=== PATIENT | female | born 1935 | race Caucasian/White ===

== ENCOUNTER 2018-02-16 19:02 | Observation (INO) | payer MEDICARE, BC ==
[~2018-02-16] VITALS: Ht 157.5 cm; Wt 77.3 kg
[2018-02-16 19:27] LABS: BASOPHILS % (AUTO) 0.7 % (0-1); EOSINOPHILS # (AUTO) 0.2 X10'3 (0-0.9); EOSINOPHILS % (AUTO) 3.3 % (0-6); HEMATOCRIT 41.4 % (35.0-45.0); HEMOGLOBIN 14.6 g/dl (12.0-16.0); LYMPHOCYTES # (AUTO) 1.2 X10'3 (1.1-4.8); LYMPHOCYTES % (AUTO) 17.9 % (21-51); MEAN CORPUSCULAR HEMOGLOBIN 33.5 PG (27.0-31.0); MEAN CORPUSCULAR HGB CONC 35.3 % (33.0-36.5); MEAN CORPUSCULAR VOLUME 94.8 FL (78-98); MEAN PLATELET VOLUME 7.7 FL (7.4-10.4); MONOCYTES # (AUTO) 0.6 X10'3 (0-0.9); MONOCYTES % (AUTO) 8.1 % (2-12); NEUTROPHILS # (AUTO) 4.8 X10'3 (1.8-7.7); PLATELET COUNT 190 X10'3 (140-440); RED BLOOD COUNT 4.37 X10'6 (4.20-5.60); RED CELL DISTRIBUTION WIDTH 13.2 % (11.5-14.5); WHITE BLOOD COUNT 6.9 X10'3 (4.5-11.0)
[2018-02-16 19:38] LABS: PARTIAL THROMBOPLASTIN TIME 26 SECONDS (22-32); PROTHROMBIN TIME 10.2 SECONDS (9.0-12.0)
[2018-02-16 19:40] LABS: ALANINE AMINOTRANSFERASE 64 U/L (12-78); ALBUMIN 3.3 G/DL (3.4-5.0); ALKALINE PHOSPHATASE 86 IU/L (46-116); ANION GAP 13 (8-16); ASPARTATE AMINO TRANSFERASE 39 U/L (10-37); BILIRUBIN,TOTAL 0.4 MG/DL (0.1-1.0); BLOOD UREA NITROGEN 15 MG/DL (7-18); BUN/CREATININE RATIO 21.7 (6.6-38.0); CALCIUM 8.4 MG/DL (8.5-10.1); CHLORIDE 107 MMOL/L (99-107); CREATININE 0.69 MG/DL (0.40-0.90); GLUCOSE 133 MG/DL (70-104); POTASSIUM 3.8 MMOL/L (3.5-5.1); SODIUM 144 MMOL/L (135-145); TOTAL CARBON DIOXIDE 24.3 MMOL/L (24-32); TOTAL PROTEIN 6.5 G/DL (6.4-8.2); eGFR 82 ML/MIN
[2018-02-16] MEDS ORDERED: CLOP75TA33 PO (21:15)
[2018-02-16] MEDS ORDERED: PRAV10TA39 PO (21:15)
[2018-02-16] MEDS ORDERED: ASPI-611 PO (21:15)
[2018-02-16] MEDS ORDERED: EZET10TA14 PO (21:15)
[2018-02-16] MEDS ORDERED: acetaminophen 325mg tablet PO PRN ×2 (21:50)
[2018-02-16] MEDS ORDERED: ondansetron/PF 4mg/2ml inj IV PRN (21:50)
[2018-02-16] MEDS ORDERED: mag hydrox/Alum hydrox/simeth 30ml oral suspension PO PRN (21:50)
[2018-02-16] MEDS ORDERED: HYDROcodone/acetaminophen 5mg/325mg tablet PO PRN (21:50)
[2018-02-16] MEDS ORDERED: magnesium hydroxide 30ml (MOM) UD suspension PO PRN (21:50)
[2018-02-17 00:35] VITALS: BP 136/73
[2018-02-17 05:37] LABS: BASOPHILS % (AUTO) 0.5 % (0-1); EOSINOPHILS # (AUTO) 0.2 X10'3 (0-0.9); EOSINOPHILS % (AUTO) 3.2 % (0-6); HEMOGLOBIN 14.5 g/dl (12.0-16.0); LYMPHOCYTES # (AUTO) 1.4 X10'3 (1.1-4.8); LYMPHOCYTES % (AUTO) 24.2 % (21-51); MEAN CORPUSCULAR HEMOGLOBIN 33.6 PG (27.0-31.0); MEAN CORPUSCULAR HGB CONC 35.3 % (33.0-36.5); MEAN CORPUSCULAR VOLUME 95.2 FL (78-98); MEAN PLATELET VOLUME 7.8 FL (7.4-10.4); MONOCYTES # (AUTO) 0.5 X10'3 (0-0.9); MONOCYTES % (AUTO) 8.6 % (2-12); NEUTROPHILS # (AUTO) 3.7 X10'3 (1.8-7.7); NEUTROPHILS % (AUTO) 63.5 % (42-75); PLATELET COUNT 177 X10'3 (140-440); RED CELL DISTRIBUTION WIDTH 13.3 % (11.5-14.5); WHITE BLOOD COUNT 5.8 X10'3 (4.5-11.0)
[2018-02-17 05:46] LABS: ALBUMIN 3.2 G/DL (3.4-5.0); ANION GAP 9 (8-16); BLOOD UREA NITROGEN 11 MG/DL (7-18); BUN/CREATININE RATIO 18.3 (6.6-38.0); CALCIUM 8.6 MG/DL (8.5-10.1); CHLORIDE 109 MMOL/L (99-107); GLUCOSE 97 MG/DL (70-104); POTASSIUM 3.7 MMOL/L (3.5-5.1); SODIUM 143 MMOL/L (135-145); TOTAL CARBON DIOXIDE 25.3 MMOL/L (24-32); eGFR > 90 ML/MIN
[2018-02-17 07:30] VITALS: BP 140/67
[2018-02-17] MEDS ORDERED: atorvastatin 10mg tablet PO SCH (08:00)
[2018-02-17] MEDS ORDERED: clopidogrel 75mg tablet PO SCH (08:00)
[2018-02-17] MEDS ORDERED: famotidine 20mg tablet PO SCH (08:00)
[2018-02-17] MEDS ORDERED: pravastatin 10mg tablet PO SCH (08:00)
[2018-02-17] MEDS ORDERED: non-formulary drug (Aspirin (Aspir 81) 1 TAB) PO SCH (08:00)
[2018-02-17] MEDS ORDERED: ezetimibe 10mg tablet PO SCH (08:00)
[2018-02-17] MEDS ORDERED: aspirin 81mg tablet.DR PO SCH (08:00)
[2018-02-17 11:41] VITALS: BP 138/68
[2018-02-17] MEDS ORDERED: PANT-47 PO (11:57)
[2018-02-17] MEDS ORDERED: DIPH25CA83 PO (11:57)
== END 2018-02-17 13:55 | disposition home or self-care (01) ==
LOC: ER 19:02 → ED HOLD 21:47 → CMPBEDREQ 02-17 00:26 → SUR 3N 02-17 00:30
PROVIDERS: ADMIT Family Medicine; ATTEND Internal Medicine
DX: R10.13 Epigastric pain (principal); I25.10 Atherosclerotic heart disease of native coronary artery without angina pectoris; E78.5 Hyperlipidemia, unspecified; K21.9 Gastro-esophageal reflux disease without esophagitis; Z82.3 Family history of stroke; Z82.49 Family history of ischemic heart disease and other diseases of the circulatory system; Z90.710 Acquired absence of both cervix and uterus; Z95.5 Presence of coronary angioplasty implant and graft
CPT/HCPCS: 36415; 71045; 80048; 80053; 84484; 85025; 85610; 85730; 87070; 99285; G0378

== ENCOUNTER 2018-02-20 08:50 | Emergency (ER) | payer MEDICARE, BC ==
[~2018-02-20] VITALS: Ht 157.5 cm; Wt 80.0 kg
[~2018-02-20 08:50] MED LIST: ASPI-611 PO; CLOP75TA33 PO; DIPH25CA83 PO; EZET10TA14 PO; PANT-47 PO; PRAV10TA39 PO
[2018-02-20] MEDS ORDERED: pantoprazole 40 MG vial IV ONE (09:10)
[2018-02-20 09:42] LABS: BASOPHILS % (AUTO) 0.4 % (0-1); EOSINOPHILS # (AUTO) 0.1 X10'3 (0-0.9); HEMATOCRIT 44.3 % (35.0-45.0); HEMOGLOBIN 15.5 g/dl (12.0-16.0); LYMPHOCYTES # (AUTO) 1.1 X10'3 (1.1-4.8); LYMPHOCYTES % (AUTO) 18.3 % (21-51); MEAN CORPUSCULAR HEMOGLOBIN 33.3 PG (27.0-31.0); MEAN CORPUSCULAR VOLUME 95.4 FL (78-98); MEAN PLATELET VOLUME 7.7 FL (7.4-10.4); MONOCYTES # (AUTO) 0.4 X10'3 (0-0.9); MONOCYTES % (AUTO) 6.8 % (2-12); NEUTROPHILS # (AUTO) 4.2 X10'3 (1.8-7.7); NEUTROPHILS % (AUTO) 72.5 % (42-75); PLATELET COUNT 205 X10'3 (140-440); RED BLOOD COUNT 4.64 X10'6 (4.20-5.60); RED CELL DISTRIBUTION WIDTH 12.8 % (11.5-14.5); WHITE BLOOD COUNT 5.8 X10'3 (4.5-11.0)
[2018-02-20 09:50] LABS: PROTHROMBIN TIME 10.2 SECONDS (9.0-12.0)
[2018-02-20 10:04] LABS: ALANINE AMINOTRANSFERASE 57 U/L (12-78); ALBUMIN 3.6 G/DL (3.4-5.0); ALKALINE PHOSPHATASE 83 IU/L (46-116); ANION GAP 12 (8-16); ASPARTATE AMINO TRANSFERASE 34 U/L (10-37); BILIRUBIN,TOTAL 0.6 MG/DL (0.1-1.0); BLOOD UREA NITROGEN 20 MG/DL (7-18); BUN/CREATININE RATIO 23.5 (6.6-38.0); CALCIUM 8.7 MG/DL (8.5-10.1); CHLORIDE 107 MMOL/L (99-107); CREATININE 0.85 MG/DL (0.40-0.90); GLUCOSE 133 MG/DL (70-104); MAGNESIUM 1.9 MG/DL (1.5-2.4); POTASSIUM 3.9 MMOL/L (3.5-5.1); SODIUM 144 MMOL/L (135-145); TOTAL CARBON DIOXIDE 24.8 MMOL/L (24-32); TOTAL PROTEIN 7.1 G/DL (6.4-8.2); eGFR 64 ML/MIN
[2018-02-20 10:35] LABS: OCCULT BLOOD STOOL NEGATIVE (Neg)
[2018-02-20 11:23] VITALS: BP 139/77
== END 2018-02-20 11:25 | disposition home or self-care (01) ==
LOC: ER 08:51
DX: R19.7 Diarrhea, unspecified (principal); K92.1 Melena; I25.2 Old myocardial infarction; I25.10 Atherosclerotic heart disease of native coronary artery without angina pectoris; Z95.5 Presence of coronary angioplasty implant and graft; Z79.02 Long term (current) use of antithrombotics/antiplatelets; Z79.82 Long term (current) use of aspirin; Z88.0 Allergy status to penicillin; Z88.8 Allergy status to other drugs, medicaments and biological substances; Z79.899 Other long term (current) drug therapy
CPT/HCPCS: 36415; 80053; 82272; 83735; 83880; 84484; 85025; 85610; 99284

== ENCOUNTER 2018-07-20 09:35 | Emergency (ER) | payer MEDICARE, BC ==
[~2018-07-20] VITALS: Ht 157.5 cm; Wt 30.9 kg
[2018-07-20] MEDS ORDERED: nitroGLYCERIN 0.4mg SUBLingual tab SL PRN (09:45)
[2018-07-20] MEDS ORDERED: aspirin 81mg tab.chew PO ONE (09:45)
[2018-07-20] MEDS ORDERED: cloNIDine 0.1 mg tablet PO ONE (09:50)
[2018-07-20 09:55] LABS: BASOPHILS % (AUTO) 0.3 % (0-1); EOSINOPHILS # (AUTO) 0.1 X10'3 (0-0.9); EOSINOPHILS % (AUTO) 1.5 % (0-6); HEMATOCRIT 47.8 % (35.0-45.0); HEMOGLOBIN 16.4 g/dl (12.0-16.0); LYMPHOCYTES # (AUTO) 0.8 X10'3 (1.1-4.8); LYMPHOCYTES % (AUTO) 9.7 % (21-51); MEAN CORPUSCULAR HEMOGLOBIN 33.1 PG (27.0-31.0); MEAN CORPUSCULAR HGB CONC 34.4 % (33.0-36.5); MEAN CORPUSCULAR VOLUME 96.2 FL (78-98); MEAN PLATELET VOLUME 7.8 FL (7.4-10.4); MONOCYTES # (AUTO) 0.3 X10'3 (0-0.9); NEUTROPHILS # (AUTO) 6.5 X10'3 (1.8-7.7); NEUTROPHILS % (AUTO) 84.5 % (42-75); PLATELET COUNT 229 X10'3 (140-440); RED BLOOD COUNT 4.97 X10'6 (4.20-5.60); RED CELL DISTRIBUTION WIDTH 13.6 % (11.5-14.5); WHITE BLOOD COUNT 7.7 X10'3 (4.5-11.0)
[2018-07-20] MEDS ORDERED: ondansetron/PF 4mg/2ml inj IV ONE (10:00)
[2018-07-20 10:03] LABS: PARTIAL THROMBOPLASTIN TIME 27 SECONDS (22-32); PROTHROMBIN TIME 10.1 SECONDS (9.0-12.0)
[2018-07-20 10:08] LABS: ALANINE AMINOTRANSFERASE 25 U/L (12-78); ALBUMIN/GLOBULIN RATIO 1.1 (1.1-1.5); ALKALINE PHOSPHATASE 105 IU/L (46-116); ANION GAP 9 (8-16); ASPARTATE AMINO TRANSFERASE 24 U/L (10-37); BILIRUBIN,TOTAL 0.7 MG/DL (0.1-1.0); BLOOD UREA NITROGEN 18 MG/DL (7-18); BUN/CREATININE RATIO 20.9 (6.6-38.0); CALCIUM 9.5 MG/DL (8.5-10.1); CHLORIDE 102 MMOL/L (99-107); CREATININE 0.86 MG/DL (0.40-0.90); GLUCOSE 121 MG/DL (70-104); POTASSIUM 4.1 MMOL/L (3.5-5.1); SODIUM 137 MMOL/L (135-145); TOTAL PROTEIN 7.8 G/DL (6.4-8.2); eGFR 63 ML/MIN
[2018-07-20] MEDS ORDERED: ONDA4TAB9 SL (12:17)
[2018-07-20 12:34] VITALS: BP 99/50
== END 2018-07-20 12:36 | disposition home or self-care (01) ==
LOC: ER 09:35
DX: R06.02 Shortness of breath (principal); R42 Dizziness and giddiness; R11.0 Nausea; I25.10 Atherosclerotic heart disease of native coronary artery without angina pectoris; I25.2 Old myocardial infarction; Z98.61 Coronary angioplasty status; Z88.0 Allergy status to penicillin; Z88.8 Allergy status to other drugs, medicaments and biological substances; Z79.82 Long term (current) use of aspirin
CPT/HCPCS: 36415; 71045; 80053; 83880; 84484; 85025; 85610; 85730; 93005; 99285; J2405

== ENCOUNTER 2019-07-22 10:35 | Emergency (ER) | payer MEDICARE, BC ==
[~2019-07-22] VITALS: Ht 157.5 cm; Wt 72.0 kg
[~2019-07-22 10:35] MED LIST changes: -EZET10TA14 PO; +EZET10TA21 PO
--- NOTE | 2019-07-22 11:46 | NUR ---
PT TO CT VIA W/C
[2019-07-22] MEDS ORDERED: ACET-2119 PO (12:30)
[2019-07-22] MEDS ORDERED: NAPR-56 PO (12:30)
[2019-07-22] MEDS ORDERED: ONDA4TAB6 PO (12:30)
[2019-07-22] MEDS ORDERED: naproxen 500mg tablet PO ONE (12:30)
[2019-07-22] MEDS ORDERED: acetaminophen 325mg tablet PO ONE (12:30)
[2019-07-22 12:33] VITALS: BP 155/83
== END 2019-07-22 12:37 | disposition home or self-care (01) ==
LOC: ER 10:35
DX: S06.0X0A Concussion without loss of consciousness, initial encounter (principal); I25.10 Atherosclerotic heart disease of native coronary artery without angina pectoris; I25.2 Old myocardial infarction; Z88.0 Allergy status to penicillin; Z88.8 Allergy status to other drugs, medicaments and biological substances; Z79.82 Long term (current) use of aspirin; Z79.899 Other long term (current) drug therapy; Z98.61 Coronary angioplasty status; X58.XXXA Exposure to other specified factors, initial encounter; Y93.89 Activity, other specified; Y92.89 Other specified places as the place of occurrence of the external cause; Y99.8 Other external cause status
CPT/HCPCS: 70450; 72125; 99284

== ENCOUNTER 2023-10-06 11:15 | Inpatient (IN) | payer MEDICARE, OTHER ==
[~2023-10-06] VITALS: Ht 157.5 cm; Wt 75.8 kg
[~2023-10-06 11:15] MED LIST changes: -EZET10TA21 PO; +EZET10TA6 PO; +ONDA4TAB6 PO
[2023-10-06 11:40] LABS: BASOPHILS % (AUTO) 0.6 % (0-1); EOSINOPHILS # (AUTO) 0.2 X10'3 (0-0.9); EOSINOPHILS % (AUTO) 2.3 % (0-6); HEMATOCRIT 45.1 % (35.0-45.0); HEMOGLOBIN 15.4 g/dl (12.0-16.0); LYMPHOCYTES # (AUTO) 1.7 X10'3 (1.1-4.8); LYMPHOCYTES % (AUTO) 25.4 % (21-51); MEAN CORPUSCULAR HEMOGLOBIN 33.3 PG (27.0-31.0); MEAN CORPUSCULAR HGB CONC 34.1 g/dL (33.0-36.5); MEAN CORPUSCULAR VOLUME 97.6 FL (78-98); MEAN PLATELET VOLUME 9.6 FL (7.4-10.4); MONOCYTES # (AUTO) 0.6 X10'3 (0-0.9); NEUTROPHILS # (AUTO) 4.2 X10'3 (1.8-7.7); NEUTROPHILS % (AUTO) 62.7 % (42-75); PLATELET COUNT 153 X10'3 (140-440); RED BLOOD COUNT 4.62 X10'6 (4.20-5.60); RED CELL DISTRIBUTION WIDTH 13.4 % (11.5-14.5); WHITE BLOOD COUNT 6.7 X10'3 (4.5-11.0)
[2023-10-06 11:54] LABS: ALANINE AMINOTRANSFERASE 25 U/L (12-78); ALBUMIN 3.3 G/DL (3.4-5.0); ALBUMIN/GLOBULIN RATIO 1.1 (1.1-1.5); ALKALINE PHOSPHATASE 106 IU/L (46-116); ANION GAP 8 (8-16); ASPARTATE AMINO TRANSFERASE 18 U/L (10-37); BILIRUBIN,TOTAL 0.3 MG/DL (0.1-1.0); BLOOD UREA NITROGEN 16 MG/DL (7-18); BUN/CREATININE RATIO 18.8 (10.0-20.0); CALCIUM 8.6 MG/DL (8.5-10.1); CHLORIDE 105 MMOL/L (99-107); CREATININE 0.85 MG/DL (0.40-0.90); POTASSIUM 3.4 MMOL/L (3.5-5.1); SODIUM 140 MMOL/L (135-145); TOTAL CARBON DIOXIDE 27.1 MMOL/L (24-32); TOTAL PROTEIN 6.3 G/DL (6.4-8.2); eCRCL 38 ML/MIN; eGFR 64 ML/MIN
[2023-10-06 12:02] LABS: PRO BRAIN NATRIURETIC PEPTIDE 702 PG/ML (0-450)
[2023-10-06 12:03] LABS: GLUCOSE 111 MG/DL (70-104)
[2023-10-06] MEDS ORDERED: amLODIPine 5mg tablet PO ONE (21:15)
[2023-10-06] MEDS ORDERED: potassium Cl 20 mEq SR tablet PO PRN ×2 (22:50)
[2023-10-06] MEDS ORDERED: PERFLUTREN PROTEIN-A MICROSPHR (Optison) 0.22 MG/ML 3ML VIAL IV ONE (22:50)
[2023-10-06] MEDS ORDERED: mag hydrox/Alum hydrox/simeth 30ml oral suspension PO PRN (22:50)
[2023-10-06] MEDS ORDERED: potassium Cl 40MEQ/1/2NS 520ml 520 ML IV PRN (22:50)
[2023-10-06] MEDS ORDERED: acetaminophen 325mg tablet PO PRN (22:50)
[2023-10-06] MEDS ORDERED: magnesium 4gm in 100ml NS 100 ML IV PRN (22:50)
[2023-10-06] MEDS ORDERED: magnesium 2GM in 50ml NS 50 ML IV PRN (22:50)
[2023-10-06] MEDS ORDERED: ondansetron/PF 4mg/2ml inj IV PRN (22:50)
[2023-10-06] MEDS ORDERED: morphine 2 MG/ML inj. syringe IV PRN ×2 (22:50)
[2023-10-07 07:03] LABS: BASOPHILS % (AUTO) 0.6 % (0-1); EOSINOPHILS # (AUTO) 0.1 X10'3 (0-0.9); EOSINOPHILS % (AUTO) 1.8 % (0-6); HEMATOCRIT 46.1 % (35.0-45.0); HEMOGLOBIN 15.6 g/dl (12.0-16.0); LYMPHOCYTES # (AUTO) 1.4 X10'3 (1.1-4.8); LYMPHOCYTES % (AUTO) 22.9 % (21-51); MEAN CORPUSCULAR HEMOGLOBIN 33.2 PG (27.0-31.0); MEAN CORPUSCULAR HGB CONC 33.9 g/dL (33.0-36.5); MEAN CORPUSCULAR VOLUME 97.8 FL (78-98); MEAN PLATELET VOLUME 9.9 FL (7.4-10.4); MONOCYTES # (AUTO) 0.5 X10'3 (0-0.9); MONOCYTES % (AUTO) 8.2 % (2-12); NEUTROPHILS # (AUTO) 4.2 X10'3 (1.8-7.7); NEUTROPHILS % (AUTO) 66.5 % (42-75); PLATELET COUNT 134 X10'3 (140-440); RED BLOOD COUNT 4.71 X10'6 (4.20-5.60); RED CELL DISTRIBUTION WIDTH 13.4 % (11.5-14.5); WHITE BLOOD COUNT 6.3 X10'3 (4.5-11.0)
[2023-10-07 07:24] LABS: ALANINE AMINOTRANSFERASE 21 U/L (12-78); ALBUMIN 3.3 G/DL (3.4-5.0); ALBUMIN/GLOBULIN RATIO 1.2 (1.1-1.5); ALKALINE PHOSPHATASE 82 IU/L (46-116); ANION GAP 4 (8-16); ASPARTATE AMINO TRANSFERASE 21 U/L (10-37); BILIRUBIN,TOTAL 0.5 MG/DL (0.1-1.0); BLOOD UREA NITROGEN 15 MG/DL (7-18); BUN/CREATININE RATIO 19.5 (10.0-20.0); CALCIUM 8.6 MG/DL (8.5-10.1); CHLORIDE 105 MMOL/L (99-107); CREATININE 0.77 MG/DL (0.40-0.90); GLUCOSE 93 MG/DL (70-104); MAGNESIUM 2.2 MG/DL (1.5-2.4); POTASSIUM 3.6 MMOL/L (3.5-5.1); SODIUM 140 MMOL/L (135-145); TOTAL CARBON DIOXIDE 30.9 MMOL/L (24-32); TOTAL PROTEIN 6.1 G/DL (6.4-8.2); eCRCL 42 ML/MIN; eGFR 71 ML/MIN
--- NOTE | 2023-10-07 07:47 | NUR ---
Pt reports she no longer takes typical pharmacy. Now taking two supplements: Mattokinase Serrapertase
[2023-10-07] MEDS: docusate sod 100mg capsule PO SCH ×2 (08:00→19:26)
[2023-10-07] MEDS: K and/or MAG REPLACEMENT MC SCH ×2 (08:00→20:00)
--- NOTE | 2023-10-07 08:44 | NUR ---
patient in bed,awake, no reported discomfort.
[2023-10-07 10:27] LABS: PHOSPHORUS 3.6 MG/DL (2.3-4.5)
--- NOTE | 2023-10-07 11:53 | NUR ---
pt transferred from ed to room 3012c. received report from marily in ed assumed care of patient. oriented patient to the room.
[2023-10-07 13:01] VITALS: BP 155/80; PULSE 70; RESP 16; TEMP 98.1; O2SAT 97
[2023-10-07] MEDS ORDERED: NO HOME MEDS PO (15:04)
[2023-10-07 15:15] VITALS: BP 139/65; PULSE 71; RESP 16; TEMP 98.3; O2SAT 94
[2023-10-07 18:00] VITALS: BP 155/73; PULSE 67; RESP 18; TEMP 98.3; O2SAT 98
[2023-10-07 20:00] VITALS: RESP 18; O2SAT 98
[2023-10-07] MEDS ORDERED: enoxaparin 40mg/0.4ml syringe SQ SCH (20:00)
[2023-10-07 22:00] VITALS: BP 125/55; PULSE 70; RESP 18; TEMP 97.9; O2SAT 96
[2023-10-08 00:38] VITALS: RESP 18; O2SAT 98
[2023-10-08 02:00] VITALS: BP 152/78; PULSE 66; RESP 16; TEMP 98.6; O2SAT 95
--- NOTE | 2023-10-08 06:32 | NUR ---
Patient in room PCU 3012. I have received report from Sandro RICHMOND and had the opportunity to ask questions and assume patient care.
[2023-10-08 07:00] VITALS: BP 143/69; PULSE 61; RESP 16; TEMP 97.7; O2SAT 96
[2023-10-08] MEDS ORDERED: carVEDilol 3.125mg tablet PO SCH (08:00)
[2023-10-08] MEDS ORDERED: lisinopril 5mg tablet PO SCH (08:00)
[2023-10-08] MEDS: K and/or MAG REPLACEMENT MC SCH (08:00)
[2023-10-08 08:03] LABS: BASOPHILS % (AUTO) 0.6 % (0-1); EOSINOPHILS # (AUTO) 0.2 X10'3 (0-0.9); EOSINOPHILS % (AUTO) 3.6 % (0-6); HEMATOCRIT 46.6 % (35.0-45.0); HEMOGLOBIN 15.5 g/dl (12.0-16.0); LYMPHOCYTES # (AUTO) 1.7 X10'3 (1.1-4.8); LYMPHOCYTES % (AUTO) 29.9 % (21-51); MEAN CORPUSCULAR HEMOGLOBIN 32.6 PG (27.0-31.0); MEAN CORPUSCULAR HGB CONC 33.2 g/dL (33.0-36.5); MEAN PLATELET VOLUME 9.5 FL (7.4-10.4); MONOCYTES # (AUTO) 0.5 X10'3 (0-0.9); NEUTROPHILS # (AUTO) 3.1 X10'3 (1.8-7.7); NEUTROPHILS % (AUTO) 56.9 % (42-75); PLATELET COUNT 143 X10'3 (140-440); RED BLOOD COUNT 4.76 X10'6 (4.20-5.60); RED CELL DISTRIBUTION WIDTH 13.6 % (11.5-14.5); WHITE BLOOD COUNT 5.5 X10'3 (4.5-11.0)
[2023-10-08] MEDS: docusate sod 100mg capsule PO SCH (08:37)
[2023-10-08 08:38] VITALS: BP_SYST 143; PULSE 61
[2023-10-08 08:40] LABS: ALANINE AMINOTRANSFERASE 23 U/L (12-78); ALKALINE PHOSPHATASE 79 IU/L (46-116); ANION GAP 5 (8-16); ASPARTATE AMINO TRANSFERASE 21 U/L (10-37); BILIRUBIN,TOTAL 0.6 MG/DL (0.1-1.0); BLOOD UREA NITROGEN 14 MG/DL (7-18); BUN/CREATININE RATIO 16.3 (10.0-20.0); CALCIUM 9.2 MG/DL (8.5-10.1); CHLORIDE 106 MMOL/L (99-107); CREATININE 0.86 MG/DL (0.40-0.90); GLUCOSE 95 MG/DL (70-104); MAGNESIUM 2.2 MG/DL (1.5-2.4); POTASSIUM 4.5 MMOL/L (3.5-5.1); SODIUM 139 MMOL/L (135-145); TOTAL CARBON DIOXIDE 28.5 MMOL/L (24-32); TOTAL PROTEIN 5.9 G/DL (6.4-8.2); eCRCL 38 ML/MIN; eGFR 63 ML/MIN
--- NOTE | 2023-10-08 10:14 | NUR ---
[employer]LL[employer]ER documentation: I have reviewed and agree with all interventions, assessments performed and documented by BASILIO Montemayor.
[2023-10-08] MEDS ORDERED: COR3.125T PO (10:40)
[2023-10-08] MEDS ORDERED: LISI5TAB22 PO (10:40)
[2023-10-08] MEDS ORDERED: FURO-150 PO (10:40)
--- NOTE | 2023-10-08 11:30 | NUR ---
Patient discharged home with all belongings and discharge instructions. IV removed and tele monitor removed and returned to television agent. Escorted out via wheel chair and left in private vehicle.
[2023-10-09 18:24] LABS: HBSAG SCREEN Negative (Negative); HEPATITIS C VIRUS ANTIBODY Non Reactive (Non Reactive)
== END 2023-10-08 11:30 | disposition home or self-care (01) | DRG 280 ==
LOC: ER 11:15 → ED HOLD 22:58 → PCU 3S 10-07 11:29
PROVIDERS: ADMIT Family Medicine; ATTEND Internal Medicine
DX: I49.3 Ventricular premature depolarization (principal); I50.21 Acute systolic (congestive) heart failure; I21.A1 Myocardial infarction type 2; E87.6 Hypokalemia; I11.0 Hypertensive heart disease with heart failure; G20.A1 Parkinson's disease without dyskinesia, without mention of fluctuations; I25.10 Atherosclerotic heart disease of native coronary artery without angina pectoris; I25.2 Old myocardial infarction; Z88.8 Allergy status to other drugs, medicaments and biological substances; Z88.0 Allergy status to penicillin; Z79.82 Long term (current) use of aspirin; Z79.01 Long term (current) use of anticoagulants; Z79.899 Other long term (current) drug therapy; Z82.49 Family history of ischemic heart disease and other diseases of the circulatory system
CPT/HCPCS: 36415; 71045; 80053; 83735; 83880; 84100; 84484; 85025; 86706; 86803; 87081; 87340; 87522; 93306; 99285; G0378

== ENCOUNTER 2023-11-03 09:22 | Emergency (ER) | payer MEDICARE, OTHER ==
[~2023-11-03] VITALS: Ht 157.5 cm; Wt 73.4 kg
[~2023-11-03 09:22] MED LIST changes: -ASPI-611 PO; -CLOP75TA33 PO; +COR3.125T PO; -DIPH25CA83 PO; -EZET10TA6 PO; +FURO-150 PO; +LISI5TAB22 PO; +NO HOME MEDS PO; -ONDA4TAB6 PO; -PANT-47 PO; -PRAV10TA39 PO
[2023-11-03] MEDS ORDERED: ketorolac trometh. 30mg/ml inj. IV STA (11:45)
[2023-11-03] MEDS ORDERED: acetaminophen 325mg tablet PO STA (11:45)
[2023-11-03] MEDS ORDERED: pantoprazole 40 MG vial IV STA (11:45)
[2023-11-03] MEDS ORDERED: dexamethasone 4mg tablet PO STA (11:45)
[2023-11-03] MEDS ORDERED: acetaminophen 325mg tablet PO ONE (13:10)
[2023-11-03] MEDS ORDERED: CYCL7.5T PO (13:53)
[2023-11-03] MEDS ORDERED: PANT-47 PO (13:53)
[2023-11-03] MEDS ORDERED: DEC4T PO (13:53)
[2023-11-03] MEDS ORDERED: ACET-1008 PO (13:53)
[2023-11-03 15:51] VITALS: BP 164/97; PULSE 69; RESP 18; TEMP 97.3; O2SAT 96
== END 2023-11-03 14:30 | disposition home or self-care (01) ==
LOC: ER 09:22
DX: M54.9 Dorsalgia, unspecified (principal); M54.59 Other low back pain; I50.9 Heart failure, unspecified; Z88.0 Allergy status to penicillin; Z88.8 Allergy status to other drugs, medicaments and biological substances; Z79.899 Other long term (current) drug therapy
CPT/HCPCS: 72128; 72131; 96374; 96375; 99285; C9113; J1885